=== PATIENT | male | born 1965 ===

== ENCOUNTER 2022-09-28 09:20 | Outpatient (CLI) | payer OTHER ==
[2022-09-28 11:12] VITALS: BP 128/88
--- NOTE | 2022-09-28 11:12 | SLEEP CARE CONSULTATION ---
Information from patient questionnaire entered by Mahamed Fox. I have reviewed and concur with the information entered by Mahamed Fox. This document represents the service I personally performed and the decisions made by me, Karlene Wood MD, [facility]. History of Present Illness Service Date and Time: 09/28/2022919 Reason for Visit: New patient Chief Complaint: reports: Other (F/U) Date of Onset: 2008 Usual bedtime: 2-3 AM Time it takes to fall asleep: NOT LONG Snores at night: Yes Observed to quit breathing while asleep: Yes Sleeps alone due to snoring: No Number of times waking at night: NOT MUCH WITH CPAP Reasons for waking at night: reports: Bathroom Toss, Turn, or Twitch while sleeping: Yes Recalls having dreams: Yes Usually gets out of bed at: 8-9 Feels refreshed in the morning: No Morning headache: No Sleepy or fatigued during the day: Yes Ever fallen asleep while driving: Yes Takes day naps: No Dreams during day naps: No Prior sleep studies: Yes Year and Where: [facility] OVER 10[facility] Additional HPI information: Mr. Chopra was diagnosed to have moderate obstructive sleep apnea-hypopnea syndrome and returns today for a follow up of CPAP therapy after last seen 6 years ago. He was last seen in 2016. The patient gets his supplies from [facility]. He continues to use the device nightly and all through the night. He wears a full face mask. The compliance report shows that he uses the device 81 nights out of the past 90 nights, averaging 5.7 hours a night. He complains of no particular problem with the device such as soreness on the face, dry nose, epistaxis, nasal congestion or headache. He thinks that the pressure of 8 cmH2O is comfortable. He does not use the heated humidifier. On the CPAP therapy he notices improvement in his sleep quality, and that he wakes up feeling fresher in the morning and more awake/alert during the day. [place] Sleepiness Scale score is 13. The average residual AHI is 5.4; and large leak, 2 minutes a night. His Respironics System One Series CPAP is now 10 years old. 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 Patient is and lives in [place]. Have you smoked in the past 12 months: No Alcohol use: Yes Alcohol amount and frequency: 1-6 DRINKS A YEAR Caffeine use: Yes Caffeine amount and frequency: 4-7 CUPS WEEKLY Family History Family history of sleep disordered breathing: No Allergies and Home Medications Known drug allergies: No Drug allergies reviewed: Yes Home medication list reviewed: Yes Review of Systems Review of systems same as previous: Yes Weight gain over past 5 years: 5 Cardiovascular: reports: high blood pressure Respiratory: denies: shortness of breath, wheeze, sputum production, chronic cough, other Gastrointestinal: denies: heartburn, difficulty swallowing, nausea, vomitting, diarrhea, abdominal pain, other Urinary: denies: incontinence, frequency, urgency, impotence, other Neurological: denies: headaches, seizure, head trauma, disorientation, speech dysfunction, gait or balance problems, fainting or unconsciousness, other Psychiatric: denies: Attention Deficit Hyperactivity, anxiety, depression, mood disorder, claustrophobia, other Ear/Nose/Throat: denies: nasal congestion, sinus problems, nose bleeds, dry mout h/throat, hoarseness, injury to nose, tonsillectomy, wisdom teeth removed, other Endocrine: denies: thyroid disease, history of goiter, sluggishness, too hot or cold, excessive thirst, increased appetite, increased urination, unexplained weakness, other Musculoskeletal: reports: joint pain, neck pain, back pain, muscle pain or cramping, mobility problems Physical Exam Vital signs obtained and entered by: MAHAMED Amador MA Blood Pressure: 128/88 Cuff size: regular Heart Rate: 67 O2 Saturation: 97 Height: 5 ft 5 in Weight: 179 lb 3.2 oz Body Mass Index: 29.8 BMI Classification: Overweight Neck circumference: 17 Mood/affect: Normal HEENT: No craniofacial malformation Nostrils: patent to airflow Neurologic: intact, no focal deficits Impression and Plan IMPRESSION: 1. Obstructive Sleep Apnea-Hypopnea Syndrome, moderate (AHI was 18.1 in 2008), with the patient continuing to do well on nasal CPAP therapy. He has excellent compliance and significant clinical benefits. The current pressure appears effective and comfortable. Overall, he is very satisfied with treatment and plans to continue with it long-term. Because the CPAP is now older than the useful life of 5 years, I will order the patient a new one and make it an autoCPAP set between 6 and 10 cmH2O. PLAN: 1. Prescription made for an autoCPAP, heated humidifier, and related supplies. 2. Return for follow up after one month of using the CPAP. Prescriptions: Auto CPAP Follow up with Sleep Care in: 1-2 months Visit Type: In Office Time Spent with Patient (minutes): 15 Provider Statement: I spent 100% of the Face to Face Visit with the patient with greater than 50% spent counseling the patient and coordination of care.
== END 2022-09-28 09:21 | disposition home or self-care (01) ==
LOC: SC 09:20
PROVIDERS: ATTEND Internal Medicine Pulmonary Disease
DX: G47.33 Obstructive sleep apnea (adult) (pediatric) (principal)
CPT/HCPCS: 99202; 99212